=== PATIENT | female | born 1960 | race Caucasian/White ===

== ENCOUNTER → 2017-07-19 | Outpatient (CLI) | payer OTHER ==
--- NOTE | 2017-07-19 08:47 | DIAGNOSTIC IMAGING REPORT ---
LEFT HAND 3 VIEWS HISTORY: LEFT HAND PAIN COMPARISON: None. FINDINGS: There is no fracture or dislocation. Moderate osteoarthritis at the first carpometacarpal joint. This is demonstrated by joint space narrowing, subchondral sclerosis, and marginal osteophytes. Question of a tiny. Erosion at the head of the middle phalanx of the middle finger which could be due to degenerative change. No radiopaque foreign bodies. IMPRESSION: 1. No fracture or dislocation within the left hand. 2. Moderate osteoarthritis at the first carpometacarpal joint. Electronically signed by: Carter Perez M.D. 07/19/2017 8:45 AM Dictated Date/Time: 07/19/2017 8:43 AM
== END | disposition home or self-care (01) ==
LOC: C.RDSM 12:00
PROVIDERS: ATTEND Physician Assistant
DX: M79.642 Pain in left hand (principal); M18.12 Unilateral primary osteoarthritis of first carpometacarpal joint, left hand